=== PATIENT | male | born 1995 | race Caucasian/White ===

== ENCOUNTER → 2017-07-09 | Outpatient (CLI) | payer BC | LOC: BMCIMAGING 16:35 | PROVIDERS: ATTEND Family Medicine | DX: J40 Bronchitis, not specified as acute or chronic (principal) ==

== ENCOUNTER 2018-12-16 15:40 | Emergency (ER) | payer BC ==
[2018-12-16 15:44] VITALS: BP 141/62
--- NOTE | 2018-12-16 16:08 | EDPHY ---
H & P Stated Complaint: R calf injury Time Seen by Provider: 12/16/18 16:08 - Personal History Current Tetanus/Diphtheria Vaccine: Yes Current Tetanus Diphtheria and Acellular Pertussis (TDAP): Yes - Medical/Surgical History Hx Asthma: No Hx Chronic Respiratory Disease: No Hx Diabetes: No Hx Cardiac Disease: No Hx Renal Disease: No Hx Cirrhosis: No Hx Alcoholism: No Hx HIV/AIDS: No Hx Splenectomy or Spleen Trauma: No Other PMH: denies - Social History Smoking Status: Never smoked Constitutional: Initial Vital Signs Temperature (C) 37.3 C 12/16/18 15:42 Heart Rate 86 12/16/18 15:42 Respiratory Rate 16 12/16/18 15:42 Blood Pressure 141/62 H 12/16/18 15:42 O2 Sat (%) 94 12/16/18 15:42 O2 Delivery Mode Room Air Allergies/Adverse Reactions: No Known Allergies Allergy (Unverified 12/16/18 15:42) Home Medications: Medication Instructions Recorded NK [No Known Home Meds] 12/16/18 Medical Decision Making - Diagnostics Imaging: I viewed and interpreted images myself ED Course/Re-evaluation: CHIEF COMPLAINT: Right calf injury HISTORY OF PRESENT ILLNESS: The patient is a 23 y/o male complaining of a right calf injury after it was hit by a softball travelling 80mph, 2 days ago. The patient was able to walk without difficulty and played softball last night. Today he accidently hit his leg against something and developed a stinging pain in his lower right leg. Since hitting it, the pain has remained constant. No fever, headache, body aches , lightheadedness, chest pain, heart palpitations, shortness of breath, cough, abdominal pain, urinary or bowel complaints, numbness, paresthesias. REVIEW OF SYSTEMS: A comprehensive 10 system review of systems is otherwise negative aside from elements mentioned in the history of present illness and medical decision making. PHYSICAL EXAM: HR, BP, O2 Sat, RR. Temp noted General Appearance: Alert, well hydrated, appropriate, and non-toxic appearing. Head: Atraumatic without scalp tenderness or obvious injury Eyes: Pupils equal, round, reactive to light and accommodation, EOMI, no trauma , no injection. Ears: Clear bilaterally, no perforation, normal landmarks Nose: Atraumatic, no rhinorrhea, clear. Throat: There is no erythema or exudates, no lesions, normal tonsils, mucus membranes moist. Neck: Supple, 2+ carotid upstroke, nontender, no lymphadenopathy. Respiratory: No retractions, no distress, no wheezes, and no accessory muscle use. Lungs are clear to auscultation bilaterally. Cardiovascular: Regular rate and rhythm, no murmurs, rubs, or gallops. Bilateral carotid, radial, dorsalis pedis, and posterior tibial pulses intact. Good capillary refill all extremities. Gastrointestinal: Abdomen is soft, nontender, non-distended, no masses, no rebound, no guarding, no peritoneal signs. Musculoskeletal: Right medial calf hematoma with ecchymosis. Significant tenderness along the medial shaft of the tibia. No signs of compartment syndrome. Normal neurovascular. Otherwise normal active ROM of all extremities, atraumatic. Neurological: Alert, appropriate, and interactive. The patient has normal DTRs and non-focal cranial nerves, motor, sensory, and cerebellar exam. Skin: No rashes, good turgor, no nodules on palpation. Past medical history: Denies Past surgical history: Denies Family history: Denies Social history: Friend at bedside, student at , single DIAGNOSTICS/PROCEDURES/CRITICAL CARE TIME: Right tib/fib x-ray: No acute osseous injuries DIFFERENTIAL DIAGNOSIS: The differential diagnosis for the patient's leg injury included but was not limited to hematoma, fracture, ligamentous injury, contusion, muscular strain, compartment syndrome. MEDICAL DECISION MAKING: The patient is a 23 y/o male presenting with a right calf injury after it was hit by a softball travelling 80mph, 2 days ago. The patient was able to walk without difficulty. on exam he has a right medial calf hematoma with ecchymosis. Significant tenderness along the medial shaft of the tibia. No signs of compartment syndrome. Right tib/fib x-ray ordered. 1635: Reassessed patient and discussed normal imaging findings. Return precautions provided; patient is comfortable with this plan. Departure - Departure Disposition: Home, Routine, Self-Care Clinical Impression: Hematoma of right lower extremity Qualifiers: Encounter type: initial encounter Qualified Code(s): S80.11XA - Contusion of right lower leg, initial encounter Condition: Good Instructions: Leg Pain (ED), Hematoma (ED) Additional Instructions: 1. Rest, ice, elevation. 2. Return to the emergency department for worsening pain, swelling, numbness, weakness or other concerns. Referrals: ASHLEY Yoon,. [Clinic] - As per Instructions Report Scribed for: Christopher Rees Report Scribed by: Jeannette Valente Date of Report: 12/16/18 Time of Report: 16:09
== END 2018-12-16 16:38 | disposition home or self-care (01) ==
DX: S80.11XA Contusion of right lower leg, initial encounter (principal); W21.07XA Struck by softball, initial encounter; Y93.64 Activity, baseball